=== PATIENT | male | born 1985 | race Caucasian/White ===

== ENCOUNTER 2017-03-24 16:48 | Inpatient (IN) | payer OTHER ==
[~2017-03-24] VITALS: Ht 177.8 cm; Wt 78.0 kg
--- NOTE | ~2017-03-24 | PN ---
Unit #: [id number] #: [id number] Patient: RAMONA VANG [id number] [facility] [address] [place] [address] [id number] I MR#: [id number] NAME: RAMONA VANG ROOM: 74 Age: 31 Sex: M Admission Date: 03/24/2017 : 1985 Attending Physician: Christina Robertson M.D. Admitting Physician: Christina Robertson M.D. Primary Care Physician: Generic Doctor Not In System [facility] PROGRESS NOTES DATE OF SERVICE 03/27/2017 DISCUSSION Mr. Vang is a 31-year-old white male who was seen today. Chart was reviewed and case was discussed with the staff. He appears to be not doing very well that he went to delirium tremens as he was (1) __ his socks and cell phone and was rather tangential upon interaction with me and was seen to be exhibiting bizarre behavior with disorganized thoughts and speech. He then walked into the nursing station and started going through my paper work, looking for something and had to be redirected and has been asked to go lied down and get some rest. MENTAL STATUS EXAMINATION Young white male who is casually dressed with fair personal hygiene, appears to be in no acute distress or discomfort. He was awake and alert with impaired attention and concentration. Mood is anxious and depressed with congruent affect. Speech is slow and tangential. His thought processes were disorganized with some looseness of associations. His insight and judgment remain significantly impaired. TREATMENT PLAN 1. We will continue him on his current medications and treatment protocol. We will monitor his response to medications and make further adjustments as needed. 2. We will continue to follow up. Dictated by... Jerry Mullins/ace TD: 03/28/2017 12:06 JOB #: [id number] Unit #: [id number] #: [id number] Patient: RAMONA VANG PROGRESS NOTES Page 1 of 1 X Christina Robertson MD PROGRESS NOTE
--- NOTE | ~2017-03-24 | PN ---
Unit #: [id number] #: [id number] Patient: RAMONA VANG [id number] [facility] [address] [place] [address] [id number] I MR#: [id number] NAME: RAMONA VANG ROOM: 74 Age: 31 Sex: M Admission Date: 03/24/2017 : 1985 Attending Physician: Christina Robertson M.D. Admitting Physician: Christina Robertson M.D. Primary Care Physician: Generic Doctor Not In System [facility] PROGRESS NOTES DATE OF SERVICE 03/28/2017 DISCUSSION Mr. Vang is a 31-year-old white male with alcohol dependence and mood disorder who was seen today. Chart was reviewed and case was discussed with the staff. He has actually gone into full-blown delirium tremens which we picked up early yesterday morning. However, the patient started getting worse as the day went on and was then starting to get agitated, aggressive, and hostile, and had a worst evening, particularly after some downing, and intramuscular injection of Geodon and Ativan were given. He also has been placed on to one-to-one level of precaution as he was striking and attacking staff members and refusing to follow directions. He has now been put on one-to-one level of precaution. MENTAL STATUS EXAMINATION Young white male who is casually dressed with fair personal hygiene, appears to be in slight distress or discomfort. He was confused, disoriented, sedated, and unable to carry on any meaningful conversation, and as such rest of the mental status examination could not be completed. TREATMENT PLAN 1. We will continue him on his current medications and treatment protocol. We will monitor his response and make further adjustments as needed. 2. We will continue to follow up. Dictated by... Christina Robertson M.D. IAA/bzg TD: 03/29/2017 06:56 JOB #: [id number] Unit #: [id number] #: [id number] Patient: RAMONA VANG PROGRESS NOTES Page 1 of 1 X Christina Robertson MD X PROGRESS NOTE
--- NOTE | ~2017-03-24 | PN ---
Unit #: [id number] #: [id number] Patient: RAMONA VANG [id number] [facility] [address] [place] [address] [id number] I MR#: [id number] NAME: RAMONA VANG ROOM: 74 Age: 31 Sex: M Admission Date: 03/24/2017 : 1985 Attending Physician: Christina Robertson M.D. Admitting Physician: Christina Robertson M.D. Primary Care Physician: Generic Doctor Not In System [facility] PROGRESS NOTES DATE 03/30/2017 DISCUSSION Mr. Vang is a 31-year-old, white male who was seen today and chart was reviewed and case was discussed with the staff. He appears to be doing much better and has been coming out of the detox without any complications and has been taking the medication and tolerating them fairly well with no reported side effects. MENTAL STATUS EXAM Young white male who was casually dressed with fair personal hygiene, appears to be in no acute distress or discomfort. He was awake and alert on interaction with intact orientation. His mood was anxious with congruent affect. He denies any suicidal or homicidal ideation. His insight and judgement remains slightly impaired. TREATMENT PLAN 1. We will continue him on his current medications and treatment protocol. We will monitor his response to the medications and make further adjustments as needed. 2. We will continue to follow up. Dictated by... Jerry Mullins/roberto TD: 03/30/2017 22:03 JOB #: [id number] Unit #: [id number] #: [id number] Patient: RAMONA VANG [facility] PROGRESS NOTES Page 1 of 1 X Christina Robertson MD X PROGRESS NOTE
--- NOTE | ~2017-03-24 | PA ---
Unit #: [id number] #: [id number] Patient: RAMONA VANG [id number] [facility] [address] [place] [address] [id number] I MR#: [id number] NAME: RAMONA VANG ROOM: [facility] Age: 31 Sex: M Admission Date: 03/24/2017 : 1985 Date of Assessment: Attending Physician: Christina Robertson M.D. Admitting Physician: Christina Robertson M.D. PSYCHIATRIC ASSESSMENT DATE OF SERVICE 03/25/2017. IDENTIFYING DATA Mr. Vang is a 31-year-old single white male, who is a resident of [place], [place], and was self-referred to the hospital on a voluntary basis. CHIEF COMPLAINT "I've been drinking 2 pints of bourbon daily." HISTORY OF PRESENT ILLNESS Mr. Vang is a 31-year-old white male, who was brought to the hospital with blood alcohol level of 304 and was taken to [facility] Emergency Room and reported drinking 2 pints of bourbon daily and does report increasing depression, anxiety, irritability, restlessness, significant consequences because of his addiction and wanted to get detox off alcohol. He denies any suicidal or homicidal ideations. SUBSTANCE ABUSE HISTORY The patient reports history of alcohol dependence and alcohol has been his drug of choice as he states that he has been drinking since he was 20 years old and currently has been drinking 2 pints of bourbon on a daily basis. PAST PSYCHIATRIC HISTORY The patient has not had any prior inpatient or outpatient psychiatric treatment. Review of the medical records indicate that currently he is not active in any treatment program, is not seeing a psychiatrist, and is not taking any psychotropic medications. PAST MEDICAL HISTORY No acute or chronic medical illnesses. ALLERGIES Iodine. CURRENT MEDICATIONS None. PERSONAL AND SOCIAL HISTORY A 31-year-old white male, who reports that he is single, unemployed, and lives at home with his aunt and has fairly decent social support system. Unit #: [id number] #: [id number] Patient: RAMONA VANG MENTAL STATUS EXAMINATION Young white male, who was casually dressed with fair personal hygiene, appears to be in no acute distress or discomfort. He was awake and alert on interaction with intact orientation to time, place, and person. His mood was anxious with a congruent affect. His speech was slow and goal directed. He denies any suicidal or homicidal ideations and also denies any auditory or visual hallucinations. His insight and judgment remain slightly impaired. DIAGNOSTIC IMPRESSION Psychiatric: Alcohol dependence, moderate in acute withdrawals; alcohol-induced mood disorder. Medical: None. Stressors: Moderate psychosocial stressors. TREATMENT PLAN 1. The patient has presented with a history of substance abuse and mood disorder, and has been decompensating and will need inpatient hospitalization for detoxification, safety, and stabilization. We will start him back on his home medications. We will adjust the medications and monitor response. 2. Supportive therapy was provided to the patient. 3. Safe, structured, and nourishing environment will be provided. ESTIMATED LENGTH OF STAY 5 to 7 days. ABILITY TO HELP SELF Limited. WILLINGNESS TO HELP SELF The patient appears to be willing to help self. STRENGTHS 1. Communicative. 2. Cooperative. PROBLEMS 1. Chronic dysphoric symptoms. 2. Chronic chemical dependency. 3. Poor social support system. DISCHARGE CRITERIA This will be contingent upon the patient's ability to show resolution of his depression and anxiety and his ability to stay safe to himself, particularly after discharge from the hospital. Dictated by... Jerry Mullins/pepper TD: 03/25/2017 16:22 JOB #: [id number] Unit #: [id number] #: [id number] Patient: RAMONA VANG PSYCHIATRIC ASSESSMENT Page 1 of 1 X Christina Robertson MD X PSYCHIATRIC ASSESSMENT
--- NOTE | ~2017-03-24 | PN ---
Unit #: [id number] #: [id number] Patient: RAMONA VANG [id number] [facility] [address] [place] [address] [id number] I MR#: [id number] NAME: RAMONA VANG ROOM: 74 Age: 31 Sex: M Admission Date: 03/24/2017 : 1985 Attending Physician: Christina Robertson M.D. Admitting Physician: Christina Robertson M.D. Primary Care Physician: Generic Doctor Not In System [facility] PROGRESS NOTES DATE 03/29/2017 DISCUSSION Mr. Vang is a 31-year-old white male who was seen today and chart was reviewed and case was discussed with the staff. He has been doing fairly well and appears to be coming out of his brief episode of delirium tremens without any complications and has been taking off of one-to-one level of precautions as well. Meanwhile, he has been taking medications and tolerating them fairly well with no reported side effects. MENTAL STATUS EXAMINATION Young white male who was casually dressed with fair personal hygiene and appears to be in no acute distress or discomfort. He was awake and alert on interaction with intact orientation. His mood was anxious with congruent affect. His speech is slow and restricted in content. He denies any suicidal or homicidal ideation. His insight and judgement remains slightly impaired. TREATMENT PLAN 1. Will continue him on his current medications and treatment protocol. Will monitor his response to the medications and make further adjustments as needed. 2. Will continue to follow up. Dictated by... Jerry Mullins/lowell TD: 03/29/2017 23:10 JOB #: [id number] Unit #: [id number] #: [id number] Patient: RAMONA VANG PROGRESS NOTES Page 1 of 1 X Christina Robertson MD PROGRESS NOTE
--- NOTE | ~2017-03-24 | DS ---
Unit #: [id number] #: [id number] [facility]: [facility]AD [id number] [facility] [address] [id number] I MR#: [id number] NAME: RAMONA ABAD ROOM: [facility] Age: 31 Sex: M Admission Date: 03/24/2017 : 1985 Discharge Date: 03/31/2017 Attending Physician: Christina Robertson M.D. Primary Care Physician: Generic Doctor Not In System DISCHARGE SUMMARY IDENTIFYING DATA Mr. Abad is a 31-year-old, single, white male who is a resident of [place], [place] and was self-referred to the hospital on voluntary basis. DISCHARGE DIAGNOSES Psychiatric: Alcohol dependence, moderate and acute withdrawals; alcohol-induced mood disorder. Medical: None. Stressors: Mild psychosocial stressors. HISTORY OF PRESENT ILLNESS Please see initial psychiatric evaluation for details. PAST PSYCHIATRIC HISTORY Please see initial psychiatric evaluation for details. PAST MEDICAL HISTORY Please see initial psychiatric evaluation for details. HOSPITAL COURSE The patient was admitted to the adult chemical dependency unit at [facility] and was oriented to the hospital environment. Routine p.r.n. medications were initiated. Upon initial presentation, the patient was seen to be very polite and pleasant, and awake and alert, but did not appear to be having any complications, however, soon afterwards he started exhibiting bizarre behavior, we anticipate the patient going into DTs and he ended up going into full blown delirium tremens episode with agitation, hostility, requiring seclusion and followed by which, medications were adjusted. He was put on one-to-one level of precaution. The patient was seen to be actively confused, disoriented, and was given intramuscular injections of Geodon and Ativan and detox was maintained. He was taking the medications regularly and was tolerating them fairly well and was able to come out of the delirium tremens episode without any complications and was seen to be awake and alert, and oriented and was able to come out of the detox medications as well. Followed by which, it was decided that he will be discharged home and will continue treatment on an outpatient basis. DISCHARGE MEDICATIONS None. DISCHARGE CONDITION Stable. Unit #: [id number] #: [id number] Patient: RAMONA ABAD PROGNOSIS Fair. Dictated by... Christina Robertson M.D. [facility]/pepper TD: 03/31/2017 17:18 JOB #: [id number] DISCHARGE SUMMARY Page 1 of 1 X Christina Robertson MD DISCHARGE SUMMARY
--- NOTE | ~2017-03-24 | PN ---
Unit #: [id number] #: [id number] Patient: RAMONA VANG [id number] [facility] [address] [place] [address] [id number] I MR#: [id number] NAME: RAMONA VANG ROOM: [facility] Age: 31 Sex: M Admission Date: 03/24/2017 : 1985 Attending Physician: Christina Robertson M.D. Admitting Physician: Christina Robertson M.D. Primary Care Physician: Generic Doctor Not In System [facility] PROGRESS NOTES DATE March 26, 2017 DISCUSSION Mr. Vang is a 31-year-old white male, who was seen today and chart was reviewed and the case was discussed with the staff. He has been anxious, withdrawn, and rather seclusive to himself. He appears to be in acute detox. Meanwhile, he has been taking the medications and tolerating them fairly well with no reported side effects. MENTAL STATUS EXAMINATION Young white male, who was casually dressed with fair personal hygiene and appears to be in no acute distress or discomfort. He was awake and alert on interaction with intact orientation. His mood is anxious with a congruent affect. He denies any suicidal or homicidal ideations. His insight and judgment remain slightly impaired. TREATMENT PLAN 1. We will continue him on his current medications and detox protocol, and will monitor his response to the medications, and make further adjustments as needed. 2. We will continue to followup. Dictated by... Jerry Mullins/kanchan TD: 03/27/2017 11:11 JOB #: [id number] Unit #: [id number] #: [id number] Patient: RAMONA VANG PROGRESS NOTES Page 1 of 1 X Christina Robertson MD PROGRESS NOTE
== END 2017-03-31 09:40 | DRG 897 ==
LOC: P1E 20:00
PROC: HZ2ZZZZ Detoxification Services for Substance Abuse Treatment (ICD-10-PCS; principal; 2017-03-24)
DX: F10.239 Alcohol dependence with withdrawal, unspecified (principal); F10.24 Alcohol dependence with alcohol-induced mood disorder
CPT/HCPCS: J2060; J3486